=== PATIENT | male | born 1970 | race Caucasian/White ===

== ENCOUNTER 2022-10-03 18:43 | Emergency (ER) | payer OTHER, SELFPAY ==
[2022-10-03 18:46] VITALS: BP 120/79; PULSE 64; RESP 18; TEMP 36.3; O2SAT 95; BMI 29.7
--- NOTE | 2022-10-03 18:56 | ED_ITS ---
HPI - General Adult General Time Seen by Provider: 18:56 Date Seen: 10/03/22 Chief complaint: Abdominal Pain Stated complaint: Lower abdominal pain Time Seen by Provider: 10/03/22 18:47 Source: patient, family, RN notes reviewed and old records reviewed Mode of arrival: ambulatory Limitations: no limitations History of Present Illness HPI narrative: 51-year-old male who presents with 2 days of left lower quadrant pain. Started yesterday evening, progressively worse today. No nausea vomiting, no blood in the stools, no diarrhea. No fevers or chills. Pain gets a little bit better when he urinates, worse with movement. No dysuria or hematuria. Has not taken anything for this. Prior hernia surgery and appendectomy. Denies smoking. Related Data Home Medications Medication Instructions Recorded Confirmed No Known Home Medications 10/03/22 10/03/22 Allergies Allergy/AdvReac Type Severity Reaction Status Date / Time No Known Drug Allergies Allergy Verified 10/03/22 18:49 PFSH PFSH Social History Smoking Status: Former smoker How often do you have a drink containing alcohol: never How often do you have six or more drinks on one occasion: Never AUDIT-C Alcohol total score: 0 Non-prescribed substance use: denies use Exam Narrative: Exam Narrative: General: Well-developed and well-nourished, no acute distress Head: Atraumatic and normocephalic Eyes: Pupils are equal reactive, extraocular motions intact, conjunctiva clear ENT: External nose and ears are normal, posterior pharynx without erythema or exudate Neck: No midline cervical tenderness, full spontaneous range of motion the neck, trachea midline, no adenopathy Heart: Regular rate and rhythm no murmurs or thrills Lungs: Clear to auscultation bilaterally without wheezes or crackles Abdomen: Soft, left lower quadrant tenderness,, nondistended with active bowel sounds Musculoskeletal: No tenderness, deformity, or edema Neurologic: Awake, alert, and oriented x3, no gross focal neurologic deficits, cranial nerves intact as tested Psych: Mood and affect are appropriate Skin: No rashes Const: Vital Signs, click to edit/add: Vital Signs - 24 hr 10/03/22 18:46 Temperature 97.4 F L Pulse Rate [Right Pulse Oximeter] 64 Respiratory Rate 18 Blood Pressure [Ri ght Upper Arm] 120/79 Pulse Oximetry 95 Oxygen Delivery Me thod Room Air Course Course Hospital Course: Patient seen examined, prior records reviewed. Patient presents with left lower quadrant pain since yesterday. Tenderness on exam. Symptoms are most consiste nt with acute diverticulitis, colitis or kidney stone possible but less likely. No tachycardia, hypotension, or fever to suggest sepsis. Labs and CT scan are ordered. Reevaluation(s) Time of Reevaluation #1: 19:39 Reevaluation #1: Labs independently interpreted by me with mild leukocytosis, otherwise reassuring. CT scan independently interpreted by me demonstrates acute diverticulitis without perforation or abscess. Patient will be started on Zosyn and discharged with Augmentin. Time of Reevaluation #2: 19:58 Reevaluation #2: Reviewed radiologist interpretation of CT, moderate to severe diverticulitis. Antibiotics and discharge. Vital Signs Vital signs: Initial Vital Signs Temperature 97.4 F L 10/03/22 18:46 Temperature Source Temporal Artery Scan 10/03/22 18:46 Pulse Rate 64 10/03/22 18:46 Respiratory Rate 18 10/03/22 18:46 Blood Pressure 120/79 10/03/22 18:46 Blood Pressure Mean 92 10/03/22 18:46 Blood Pressure Position Sitting 10/03/22 18:46 Pulse Oximetry 95 10/03/22 18:46 Oxygen Delivery Method Room Air 10/03/22 18:46 Vital Signs Temperature 97.4 F L 10/03/22 18:46 Pulse Rate 64 10/03/22 18:46 Respiratory Rate 18 10/03/22 18:46 Blood Pressure 120/79 10/03/22 18:46 Pulse Oximetry 95 10/03/22 18:46 Oxygen Delivery Method Room Air 10/03/22 18:46 Temperature 97.4 F L 10/03/22 18:46 Pulse Rate 64 10/03/22 18:46 Respiratory Rate 18 10/03/22 18:46 Blood Pressure 120/79 10/03/22 18:46 Pulse Oximetry 95 10/03/22 18:46 Oxygen Delivery Method Room Air 10/03/22 18:46 Medical Decision Making Lab Data Labs: Lab Results 10/03/22 10/03/22 Range/Units 19:05 19:10 WBC 12.36 H (4.50-11.00) K/uL RBC 5.08 (4.30-5.90) m/uL Hgb 14.6 (13.5-17.5) gm/dL Hct 43.7 (37.0-53.0) % MCV 86 (80-100) fL MCH 29 (26-34) pg MCHC 33 (32-36) gm/dL RDW Coeff of Charissa 12.3 (11.5-15.5) % Plt Count 217 (140-440) K/uL Neut % (Auto) 78.2 H (42.0-72.0) % Lymph % (Auto) 12.3 L (20-44) % Warrick % (Auto) 8.4 (0.0-11.0) % Eos % (Auto) 0.7 (0.0-7.0) % Baso % (Auto) 0.2 (0.0-3.0) % Neut # (Auto) 9.70 H (1.7-7.0) K/uL Lymph # (Auto) 1.50 (0.90-2.90) K/uL Warrick # (Auto) 1.00 H (0.00-0.90) K/UL Eos # (Auto) 0.10 (0.00-0.50) K/uL Baso # (Auto) 0.00 (0.00-0.30) K/uL Sodium 134 L (135-149) mmol/L Potassium 4.0 (3.6-5.1) mmol/L Chloride 102 (96-114) mmol/L Carbon Dioxide 29 (20-32) mmol/L BUN 12 (7-30) mg/dL Creatinine 0.9 (0.5-1.5) mg/dL Estimated Creat Clear 100.26 Estimated GFR 103 ml/min Glucose 94 (60-115) mg/dL Calcium 9.2 (8.4-10.6) mg/dL Urine Color Yellow (Yellow) Urine Appearance Clear (Clear) Urine pH 6.0 (5.0-8.5) Ur Specific Banner 1.020 (1.000-1.030) Urine Protein Negative (Negative) Urine Glucose (UA) Negative (Negative) Urine Ketones Trace A (Negative) Urine Blood Negative (Negative) Urine Nitrite Negative (Negative) Urine Bilirubin Negative (Negative) Urine Urobilinogen 0.2 (0.2-1.0) Ur Leukocyte Esterase Negative (Negative) Urine RBC 0-2 (0-2) Urine WBC 0-2 (0-5) Ur Squamous Epith Cells None (None-Few) Urine Bacteria None (None) Discharge Plan Discharge Prescriptions: No Action No Known Home Medications Follow Up/Referrals: Juventino Siu MD [Primary Care Provider] -
--- NOTE | 2022-10-03 18:58 | CRLHL7_ITS ---
For Patients: As a result of the Century Cures Act, medical imaging exams and procedure reports are released immediately into your electronic medical record. You may view this report before your referring provider. If you have questions, please contact your health care provider. INDICATION: LLQ PAIN X [address] ABDOMEN AND PELVIS WITH CONTRAST TECHNIQUE: Multidetector CT imaging was performed through the abdomen and pelvis following intravenous contrast administration using 100 mL Isovue 370. Coronal and sagittal reconstructions were generated. COMPARISON: None. FINDINGS: Lower chest: Lung bases are clear. Liver: Within normal limits. Gallbladder and bile ducts: No gallbladder wall thickening or calcified gallstones. No biliary dilation identified. Pancreas: Unremarkable. Spleen: Normal. Adrenals: No nodules or masses. Kidneys, ureters, and urinary bladder: No renal masses or hydronephrosis. Wall prominence of the urinary bladder due to nondistention. No bladder mass or definite pathologic wall thickening. Gastrointestinal tract: Normal caliber small bowel without obstruction or definite wall thickening. Appendix not visualized. Surgical clips at the cecal tip, suggesting prior appendectomy. Multiple colonic diverticula. Wall thickening of the sigmoid colon with adjacent fat stranding, consistent with diverticulitis. Vascular structures: Normal caliber abdominal aorta with minimal atherosclerotic calcification. Peritoneum: Small amount of free fluid in the low pelvis. No loculated collection suggestive of abscess. No free air identified. Lymph nodes: No pathologically enlarged nodes identified. Reproductive organs: Borderline prostatic enlargement. Upper scrotal surgical clips are noted. Bones: No acute findings. Incidental probable small hemangioma in the left posterolateral aspect of the L2 vertebral body. IMPRESSION: 1. Moderate to severe diverticulitis of the sigmoid colon. Associated mild free fluid in the pelvis, without definite loculation to indicate abscess. No free air identified. 2. Nonacute additional findings as detailed above. HO LLOYD MD [facility] Dictated by Navdeep Lloyd MD @ 10/03/2022 7:50:51 PM Please note that all CT scans at this facility use dose modulation, iterative reconstruction, and/or weight-based dosing when appropriate to reduce radiation dose to as low as reasonably achievable. Dictated by: Navdeep Lloyd MD @ 10/03/2022 19:52:25 (Electronically Signed)
[2022-10-03 19:12] LABS: Appearance Urine Clear (Clear); Bilirubin Urine Negative (Negative); Blood Urine Negative (Negative); Color Urine Yellow (Yellow); Glucose Urine Negative (Negative); Ketones Urine Trace (Negative); Leukocyte Esterase Urine Negative (Negative); Nitrite Urine Negative (Negative); Protein Urine Negative (Negative); Urobilinogen Urine 0.2 (0.2-1.0)
[2022-10-03 19:17] LABS: Basophils Percent Auto 0.2 % (0.0-3.0); Eosinophils Percent Auto 0.7 % (0.0-7.0); Hematocrit 43.7 % (37.0-53.0); Hemoglobin* 14.6 gm/dL (13.5-17.5); Immature Granulocytes Pct Auto 0.2 %; Lymphocytes Percent Auto 12.3 % (20-44); Mean Corpuscular HGB Conc 33 gm/dL (32-36); Mean Corpuscular Hemoglobin 29 pg (26-34); Mean Corpuscular Volume 86 fL (80-100); Monocytes Percent Auto 8.4 % (0.0-11.0); Neutrophils Percent Auto 78.2 % (42.0-72.0); Platelet Count* 217 K/uL (140-440); RDW Coefficient of Variation % 12.3 % (11.5-15.5); Red Blood Count 5.08 m/uL (4.30-5.90); White Blood Count* 12.36 K/uL (4.50-11.00)
[2022-10-03 19:27] LABS: Slide Review Reflex No
[2022-10-03 19:28] LABS: Chloride* 102 mmol/L (96-114); Sodium* 134 mmol/L (135-149)
[2022-10-03 19:30] LABS: Creatinine* 0.9 mg/dL (0.5-1.5); Est. Creatinine Clearance* 100.26; Estimated Glomerular Filt Rate 103 ml/min
[2022-10-03 19:31] LABS: Blood Urea Nitrogen* 12 mg/dL (7-30); Calcium* 9.2 mg/dL (8.4-10.6); Carbon Dioxide* 29 mmol/L (20-32); Glucose* 94 mg/dL (60-115)
[2022-10-03 19:32] LABS: RBC Urine 0-2 (0-2); WBC Urine 0-2 (0-5)
[2022-10-03] MEDS: PIPERACILLIN/TAZOBACTAM 3.375 GM in 0.9 % SODIUM CHLORIDE Mini-bag 100 ML IVPB (20:15)
[2022-10-03 20:21] VITALS: BP 128/78; PULSE 70; O2SAT 98
[2022-10-03 20:43] VITALS: BP 121/76; PULSE 60; O2SAT 98
== END 2022-10-03 20:56 | disposition home or self-care (01) ==
PROVIDERS: Emergency Provider Family Medicine; PCP Family Medicine
DX: K57.92 Diverticulitis of intestine, part unspecified, without perforation or abscess without bleeding (principal)
CPT/HCPCS: 36415; 74177; 80048; 81001; 85025; 96365; 99284; 99285; J2543; Q9967